=== PATIENT | male | born 1990 | race Caucasian/White ===

== ENCOUNTER 2016-12-03 08:28 | Day surgery (SDC) | payer OTHER ==
[2016-12-03] VITALS (7 sets, daily range): BP systolic 83–119; BP diastolic 64–81; PULSE 16–99; TEMP 97.7
[~2016-12-03] VITALS: Ht 175.3 cm; Wt 71.0 kg
[2016-12-03] MEDS ORDERED: ABILIFY 15MG TA15 MG PO (09:06)
[2016-12-03] MEDS ORDERED: [UNRECOGNIZED DRUG - OTHER] OU (09:07)
[2016-12-03] MEDS ORDERED: VITAMIN D31000 IU PO (09:08)
[2016-12-03] MEDS ORDERED: KLONOPIN 0.5MG0.5 MG PO (09:09)
[2016-12-03] MEDS ORDERED: DESOWEN0.05% TOP (09:09)
[2016-12-03] MEDS ORDERED: DULCOLAX STOOL100 MG PO (09:10)
[2016-12-03] MEDS ORDERED: TRUVADA PO (09:11)
[2016-12-03] MEDS ORDERED: FERROUS GL325 MG/TAB PO (09:11)
[2016-12-03] MEDS ORDERED: FISH OIL 1000MG1 CAP PO (09:12)
[2016-12-03] MEDS ORDERED: ABSORICA40 MG PO (09:13)
[2016-12-03] MEDS ORDERED: MOBIC15 MG PO (09:13)
[2016-12-03] MEDS ORDERED: RITALIN10 MG PO (09:14)
[2016-12-03] MEDS ORDERED: PAMELOR 10MG10 MG PO (09:14)
[2016-12-03] MEDS ORDERED: MINIPRESS2 MG PO (09:15)
[2016-12-03] MEDS ORDERED: PRILOTC PO (09:15)
[2016-12-03] MEDS ORDERED: LYRICA 150MG C150 MG PO (09:16)
[2016-12-03] MEDS ORDERED: PSYLLIUM HUSK1 POW PO (09:17)
[2016-12-03] MEDS ORDERED: ZOLOFT 100MG100 MG PO (09:18)
[2016-12-03] MEDS ORDERED: VIAGRA50 M1 PO (09:18)
[2016-12-03] MEDS ORDERED: [UNRECOGNIZED DRUG - OTHER] (09:20)
[2016-12-03] MEDS ORDERED: ZOCOR 40MG40 MG PO (09:20)
[2016-12-03] MEDS ORDERED: IMITREX50 MG PO (09:21)
[2016-12-03] MEDS ORDERED: DESYREL 50MG50 MG PO (09:21)
== END 2016-12-03 11:45 | disposition home or self-care (01) ==
LOC: SDCO 08:28
DX: Z12.11 Encounter for screening for malignant neoplasm of colon (principal); K52.9 Noninfective gastroenteritis and colitis, unspecified; R19.5 Other fecal abnormalities; Z87.11 Personal history of peptic ulcer disease
CPT/HCPCS: J2704; J7120